=== PATIENT | female | born 1965 | race Caucasian/White ===

== ENCOUNTER 2018-08-13 17:20 | Emergency (ER) | payer MEDICARE, OTHER ==
[~2018-08-13] VITALS: Ht 170.2 cm; Wt 106.8 kg
[~2018-08-13 17:20] MED LIST: FLEXERIL
[2018-08-13 17:21] VITALS: BP 141/69
[2018-08-13] MEDS ORDERED: NAPR-50 PO (17:55)
[2018-08-13] MEDS ORDERED: NORCO, ANEXSIA 5/325MG TABLET (HYDROcodone/ACETAMINOPHEN) PO ONE (18:00)
--- NOTE | 2018-08-13 18:46 | REP ---
RIGHT ELBOW, FOUR VIEWS: There is no evidence of an acute fracture, dislocation or intrinsic bone disease. IMPRESSION: No fracture or dislocation. Electronically Signed by Jw Mccallum MD 08/13/2018 07:45 P
== END 2018-08-13 18:18 | disposition home or self-care (01) ==
LOC: M ED 17:20
DX: S50.01XA Contusion of right elbow, initial encounter (principal); V43.62XA Car passenger injured in collision with other type car in traffic accident, initial encounter; Y92.9 Unspecified place or not applicable; Y93.9 Activity, unspecified; Y99.9 Unspecified external cause status; Z88.5 Allergy status to narcotic agent

== ENCOUNTER 2018-08-22 07:21 | Emergency (ER) | payer OTHER ==
[~2018-08-22] VITALS: Ht 170.2 cm; Wt 106.8 kg
[~2018-08-22 07:21] MED LIST changes: +NAPR-50 PO
[2018-08-22] MEDS ORDERED: ULTR50TA8 PO (09:56)
[2018-08-22 09:59] VITALS: BP 153/71
--- NOTE | 2018-08-22 11:30 | REP ---
RIGHT ELBOW COMPLETE: 08/22/2018. COMPARISON: 08/13/2018 CLINICAL HISTORY: Trauma. FINDINGS: Four views again show the radial head and capitellum aligning normally on both views. There is no fracture of the radial head or capitellum. The olecranon shows no fracture, and the coronoid process of the ulna intact. I see no avulsion of the triceps insertion on the posterior olecranon. There is no elbow joint effusion. Distal humerus without fracture or focal lesion. No avulsion there. IMPRESSION: 1. Negative right elbow series for fracture, avulsion, joint effusion, focal bone lesion, or other acute finding. For persistent elbow pain, orthopedic referral and followup recommended to guide any further imaging. Electronically Signed by Bhavesh Jean MD 08/22/2018 11:35 A
== END 2018-08-22 10:07 | disposition home or self-care (01) ==
LOC: M ED 07:21
DX: S50.01XA Contusion of right elbow, initial encounter (principal); G56.91 Unspecified mononeuropathy of right upper limb; X58.XXXA Exposure to other specified factors, initial encounter; Y92.9 Unspecified place or not applicable; Y93.9 Activity, unspecified; Y99.9 Unspecified external cause status; Z88.5 Allergy status to narcotic agent

== ENCOUNTER → 2018-09-23 | Outpatient (CLI) | payer OTHER ==
[~2018-09-23] MED LIST changes: +METAL LOCK LOOP XX ONE; +PROPOFOL 200 MG/20 ML VIAL As Ordered ONE; +ULTR50TA8 PO
--- NOTE | 2018-09-23 15:48 | REP ---
MRI RIGHT ELBOW: TECHNIQUE: Multiple sequences in the axial, coronal and sagittal planes. There is marrow edema in the proximal radius of a mild degree with a slight linear oblique component suggesting an occult hairline fracture at this location. There is some minimal edema in the adjacent lateral humeral epicondyle suggesting some minimal bone bruising. Other osseous structures demonstrate normal marrow signal. There is a very small joint effusion. The medial and lateral collateral ligaments are intact. There is no abnormal signal in the common flexor or extensor tendons. The triceps, biceps, brachialis and brachioradialis demonstrate no abnormal signal. IMPRESSION: Bone bruise and probable occult hairline fracture proximal radius. There appears to be some minimal bone bruising of the adjacent lateral humeral epicondyle. Small joint effusion. No evidence of tendon or ligament tear. Electronically Signed by Jw Mccallum MD 09/23/2018 04:11 P
== END ==
LOC: M RAD 12:52
PROVIDERS: ATTEND Orthopaedic Surgery Sports Medicine
DX: S50.01XA Contusion of right elbow, initial encounter (principal); M25.421 Effusion, right elbow; X58.XXXA Exposure to other specified factors, initial encounter; Y92.9 Unspecified place or not applicable

== ENCOUNTER → 2019-07-18 | Outpatient (CLI) | payer OTHER ==
[~2019-07-18] MED LIST changes: -METAL LOCK LOOP XX ONE; -NAPR-50 PO; +NAPR-837 PO; -PROPOFOL 200 MG/20 ML VIAL As Ordered ONE
[2019-07-18 09:00] LABS: HEMATOCRIT 40.7 % (36.0-47.0); HEMOGLOBIN 13.5 g/dl (12.0-15.5); MEAN CORPUSCULAR HEMOGLOBIN 30.6 pg (27.0-33.0); MEAN CORPUSCULAR HGB CONC 33.2 g/dl (32.0-36.5); MEAN CORPUSCULAR VOLUME 92.3 fl (80.0-96.0); PLATELET COUNT, AUTOMATED 198 10^3/uL (150-450); RED BLOOD COUNT 4.41 10^6/uL (4.00-5.40); WHITE BLOOD COUNT 5.2 10^3/uL (4.0-10.0)
[2019-07-18 09:22] LABS: ALBUMIN 3.7 GM/DL (3.2-5.2); ALT/SGPT 30 U/L (12-78); BILIRUBIN,TOTAL 0.5 MG/DL (0.2-1.0); BLOOD UREA NITROGEN 12 MG/DL (7-18); CALCIUM LEVEL 8.8 MG/DL (8.5-10.1); CARBON DIOXIDE LEVEL 27 MEQ/L (21-32); CHLORIDE LEVEL 107 MEQ/L (98-107); CHOLESTEROL LEVEL 219 MG/DL (<200); CHOLESTEROL RISK RATIO 3.711 (<5); CREATININE FOR GFR 0.83 MG/DL (0.55-1.30); GLOMERULAR FILTRATION RATE > 60.0 (>51); GLUCOSE, FASTING 90 MG/DL (70-100); HDL CHOLESTEROL 59 MG/DL (>40); LDL CHOLESTEROL 140 MG/DL (<100); NON-HDL-C 160 MG/DL; POTASSIUM SERUM 4.4 MEQ/L (3.5-5.1); SODIUM LEVEL 141 MEQ/L (136-145); TOTAL PROTEIN 7.1 GM/DL (6.4-8.2); TRIGLYCERIDES LEVEL 100 MG/DL (<150)
[2019-07-18 09:59] LABS: HEMOGLOBIN A1c 5.3 %
[2019-07-18 13:59] LABS: HEPATITIS C VIRUS ABY INDEX < 0.0 INDEX (<0.8)
== END ==
LOC: M LAB 08:04
PROVIDERS: ATTEND Internal Medicine
DX: E11.9 Type 2 diabetes mellitus without complications (principal)

== ENCOUNTER → 2019-07-25 | Outpatient (CLI) | payer OTHER ==
--- NOTE | 2019-07-25 09:46 | REPMRS ---
Patient History The patient states she has not had a clinical breast exam in over a year. Patient is postmenopausal. Family history of Hodgkins Lymphoma cancer at age 21 in daughter, ovarian cancer and cervical cancer at age 42 in mother. Digital Mammo Screening Bilat: July 25, 2019 - Exam #: [id number] Bilateral CC and MLO view(s) were taken. Technologist: Nya Pizano Technologist Prior study comparison: November 27, 2015, digital mammo diagnostic bilateral performed at [facility]. May 28, 2015, digital mammo diagnostic bilateral performed at [facility]. May 23, 2015, digital woman screen mammo, performed at [facility]. FINDINGS: There are scattered fibroglandular densities. There is a stable nodular opacity in the inferior and medial quadrant of the left breast. There has been no change in the appearance of the mammogram from the prior studies. There is a mild amount of scattered fibroglandular density which is fairly symmetric. There is no interval development of dominant mass, architectural distortion, or grouped microcalcification suggestive of malignancy. 3-D tomosynthesis shows no additional findings. Assessment: BI-RADS/ACR category 2 mammogram. Benign Findings. Recommendation Routine screening mammogram of both breasts in 1 year (for women over age 40). This patient's Lifetime Breast Cancer Risk is estimated at 8.4 %. This mammogram was interpreted with the aid of an FDA-approved computer-aided dectection system. Electronically Signed By: Reji Lopez MD 07/25/19 0925
== END ==
LOC: M RAD 08:11
PROVIDERS: ATTEND Internal Medicine
DX: Z12.31 Encounter for screening mammogram for malignant neoplasm of breast (principal)

== ENCOUNTER 2019-09-14 07:26 | Emergency (ER) | payer OTHER ==
[~2019-09-14] VITALS: Ht 170.2 cm; Wt 107.6 kg
[2019-09-14 08:58] LABS: INFLUENZA A AMPLIFICATION NEGATIVE (NEGATIVE); INFLUENZA B AMPLIFICATION NEGATIVE (NEGATIVE)
[2019-09-14] MEDS ORDERED: BENZ200C70 PO (09:03)
[2019-09-14] MEDS ORDERED: AFRI0.058 (09:03)
[2019-09-14 09:07] VITALS: BP 153/74
== END 2019-09-14 09:20 | disposition home or self-care (01) ==
LOC: M ED 07:26
DX: J06.9 Acute upper respiratory infection, unspecified (principal); R05 Cough; H92.02 Otalgia, left ear; Z88.5 Allergy status to narcotic agent

== ENCOUNTER → 2022-05-05 | Outpatient (CLI) | payer OTHER ==
[~2022-05-05] MED LIST changes: +BENZ200C70 PO; +OXYM15SP2
[2022-05-05 11:39] LABS: CHOLESTEROL RISK RATIO 3.842 (<5); FREE T4 1.04 NG/DL (0.76-1.46); THYROID STIMULATING HORMONE 2.77 uIU/ML (0.358-3.740)
[2022-05-05 12:00] LABS: HEMOGLOBIN A1c 5.2 %
== END ==
LOC: M PLALAB 07:30
PROVIDERS: ATTEND Student in an Organized Health Care Education/Training Program
DX: E78.5 Hyperlipidemia, unspecified (principal); Z13.29 Encounter for screening for other suspected endocrine disorder

== ENCOUNTER → 2022-07-28 | Outpatient (REF) | payer OTHER | LOC: M SFHCWAGY 12:55 | PROVIDERS: ATTEND Advanced Practice Midwife | DX: Z12.4 Encounter for screening for malignant neoplasm of cervix (principal) ==

== ENCOUNTER → 2022-07-28 | Outpatient (CLI) | payer OTHER | LOC: M WHC 08:02 | PROVIDERS: ATTEND Advanced Practice Midwife | DX: Z12.31 Encounter for screening mammogram for malignant neoplasm of breast (principal) ==

== ENCOUNTER → 2024-01-12 | Outpatient (REF) | payer OTHER | LOC: M SFHCPLAZ 16:54 | PROVIDERS: ATTEND Physician Assistant | DX: J02.9 Acute pharyngitis, unspecified (principal) ==

== ENCOUNTER 2024-01-17 09:38 | Emergency (ER) | payer OTHER ==
[~2024-01-17] VITALS: Ht 170.2 cm; Wt 100.9 kg
[2024-01-17 09:39] VITALS: BP 146/79; TEMP 96.3; O2SAT 97
[2024-01-17] MEDS ORDERED: ALBU8.5H INH (12:08)
[2024-01-17] MEDS ORDERED: ONDA-282 PO (12:09)
== END 2024-01-17 12:18 | disposition home or self-care (01) ==
LOC: M ED 09:38
DX: U07.1 COVID-19 (principal); R05.9 Cough, unspecified; Z88.5 Allergy status to narcotic agent; Z79.51 Long term (current) use of inhaled steroids; Z79.899 Other long term (current) drug therapy